=== PATIENT | male | born 1955 | race Caucasian/White ===

== ENCOUNTER 2017-02-08 08:00 | Outpatient (CLI) | payer BC ==
[2017-02-08 12:56] LABS: BASOPHILS # (AUTO) 0.1 10^3/uL (0.0-0.1); BASOPHILS % (AUTO) 1.1 %; EOSINOPHILS # (AUTO) 0.6 10^3/uL (0.0-0.7); EOSINOPHILS % (AUTO) 10.5 %; HCT - HEMATOCRIT 41.9 % (42.0-52.0); HGB - HEMOGLOBIN 14.3 g/dL (14.0-18.0); LYMPHOCYTES # (AUTO) 2.1 10^3/uL (1.5-3.5); LYMPHOCYTES % (AUTO) 36.4 %; MEAN CORPUSCULAR HEMOGLOBIN 29.1 pg (27.0-31.0); MEAN CORPUSCULAR VOLUME 85.7 fL (80.0-94.0); MEAN PLATELET VOLUME 8.3 fL (7.4-11.4); MONOCYTES # (AUTO) 0.5 10^3/uL (0.0-1.0); MONOCYTES % (AUTO) 8.5 %; NEUTROPHILS # (AUTO) 2.5 10^3/uL (1.5-6.6); NEUTROPHILS % (AUTO) 43.5 %; NUCLEATED RED BLOOD CELLS AUTO 0.1 /100WBC; RED CELL DISTRIBUTION WIDTH 15.3 % (12.0-15.0); UNCORRECTED WHITE BLOOD COUNT 5.7 x10^3/uL; WHITE BLOOD COUNT 5.7 x10^3/uL (4.8-10.8)
[2017-02-08 13:33] LABS: ALBUMIN/GLOBULIN RATIO 1.5 (1.0-2.2); BILIRUBIN,TOTAL 0.5 mg/dL (0.2-1.0); BUN - BLOOD UREA NITROGEN 23 mg/dL (6-20); CALCIUM 9.3 mg/dL (8.5-10.3); CARBON DIOXIDE - CO2 24 mmol/L (21-32); CHLORIDE 107 mmol/L (101-111); CHOL/HDL RATIO 3.1 (<5.0); CHOLESTEROL 187 mg/dL; CREATININE 0.8 mg/dL (0.6-1.2); GFR - MDRD 99 (>89); GLUCOSE 94 mg/dL (70-100); HDL CHOLESTEROL 60 mg/dL; LDL/HDL RATIO 1.8 (<3.6); POTASSIUM 3.7 mmol/L (3.5-5.0); SODIUM 138 mmol/L (135-145); TOTAL PROTEIN 6.8 g/dL (6.7-8.2); TRIGLYCERIDES 85 mg/dL; VLDL CHOLESTEROL 17 mg/dL
[2017-02-15 22:02] LABS: TEST RESULT REPORT
== END 2017-02-08 08:01 | disposition home or self-care (01) ==
LOC: LAB.WCP 08:00
PROVIDERS: ATTEND Physician Assistant Medical
DX: E78.5 Hyperlipidemia, unspecified (principal); Z12.5 Encounter for screening for malignant neoplasm of prostate; E29.1 Testicular hypofunction
CPT/HCPCS: 36415; 80053; 80061; 81599; 84153; 84402; 84403; 84443; 85025

== ENCOUNTER 2018-05-12 08:00 | Outpatient (CLI) | payer BC, OTHER ==
[2018-05-12 13:12] LABS: BASOPHILS % (AUTO) 0.8 %; EOSINOPHILS # (AUTO) 0.5 10^3/uL (0.0-0.7); EOSINOPHILS % (AUTO) 8.7 %; HGB - HEMOGLOBIN 11.4 g/dL (14.0-18.0); LYMPHOCYTES # (AUTO) 2.1 10^3/uL (1.5-3.5); LYMPHOCYTES % (AUTO) 34.5 %; MEAN CORPUSCULAR HEMOGLOBIN 20.2 pg (27.0-31.0); MEAN CORPUSCULAR HGB CONC 32.2 g/dL (32.0-36.0); MEAN CORPUSCULAR VOLUME 62.9 fL (80.0-94.0); MEAN PLATELET VOLUME 8.8 fL (7.4-11.4); MONOCYTES # (AUTO) 0.7 10^3/uL (0.0-1.0); MONOCYTES % (AUTO) 12.4 %; NEUTROPHILS # (AUTO) 2.6 10^3/uL (1.5-6.6); NEUTROPHILS % (AUTO) 43.6 %; PLT - PLATELET COUNT 342 10^3/uL (130-450); RED BLOOD COUNT 5.62 10^6/uL (4.70-6.10); RED CELL DISTRIBUTION WIDTH 19.4 % (12.0-15.0)
[2018-05-12 13:29] LABS: ALBUMIN/GLOBULIN RATIO 1.5 (1.0-2.2); ALKALINE PHOSPHATASE 43 IU/L (42-121); ALT ALANINE AMINOTRANSFERASE 22 IU/L (10-60); AST ASPARTATE AMINOTRANSFERASE 26 IU/L (10-42); BILIRUBIN,TOTAL 0.5 mg/dL (0.2-1.0); BUN - BLOOD UREA NITROGEN 19 mg/dL (6-20); CALCIUM 8.9 mg/dL (8.5-10.3); CARBON DIOXIDE - CO2 26 mmol/L (21-32); CHLORIDE 105 mmol/L (101-111); CHOL/HDL RATIO 3.4 (<5.0); CHOLESTEROL 165 mg/dL; GFR - MDRD 76 (>89); GLUCOSE 90 mg/dL (70-100); HDL CHOLESTEROL 49 mg/dL; LDL CHOLESTEROL,CALCULATED 102 mg/dL; LDL/HDL RATIO 2.1 (<3.6); SODIUM 136 mmol/L (135-145); TOTAL PROTEIN 6.6 g/dL (6.7-8.2); VLDL CHOLESTEROL 14 mg/dL
== END 2018-05-12 23:59 | disposition home or self-care (01) ==
LOC: LAB.WCP 08:00
PROVIDERS: ATTEND Physician Assistant Medical
DX: E78.5 Hyperlipidemia, unspecified (principal); Z12.5 Encounter for screening for malignant neoplasm of prostate
CPT/HCPCS: 36415; 80053; 80061; 83721; 84153; 85025

== ENCOUNTER 2018-05-20 11:12 | Outpatient (CLI) | payer OTHER ==
[2018-05-20 19:47] LABS: % IRON SATURATION 6 % (20-50); IRON 27 ug/dL (45-182); TOTAL IRON BINDING CAPACITY 447 ug/dL (250-450); TRANSFERRIN 319 mg/dL (180-329)
== END 2018-05-20 11:13 | disposition home or self-care (01) ==
LOC: LAB.WCP 11:12
PROVIDERS: ATTEND Family Medicine
DX: D50.9 Iron deficiency anemia, unspecified (principal)
CPT/HCPCS: 36415; 82728; 83540; 84466

== ENCOUNTER 2018-06-02 12:10 | Day surgery (SDC) | payer OTHER ==
[~2018-06-02 12:10] MED LIST: LIDO GARGLE 30 ML BOTTLE ONE
[2018-06-02] MEDS ORDERED: LACTATED RINGERS 1,000 ML IV ONE (12:45)
[2018-06-02] MEDS ORDERED: LIDO GARGLE 30 ML BOTTLE PO ONE (13:21)
[2018-06-02] MEDS ORDERED: fentaNYL 250 MCG/5 ML VIAL IVP ONE (13:29)
[2018-06-02] MEDS ORDERED: MIDAZOLAM 2 MG/2 ML VIAL IVP ONE (13:29)
[2018-06-02 14:26] VITALS: BP 126/70
== END 2018-06-02 12:11 | disposition home or self-care (01) ==
LOC: SDS 12:10
PROVIDERS: ATTEND Surgery
PROC: 0DJD8ZZ Inspection of Lower Intestinal Tract, Via Natural or Artificial Opening Endoscopic (ICD-10-PCS; 2018-06-02)
PROC: 0DB58ZX Excision of Esophagus, Via Natural or Artificial Opening Endoscopic, Diagnostic (ICD-10-PCS; principal; 2018-06-02 13:30)
PROC: 0DB78ZX Excision of Stomach, Pylorus, Via Natural or Artificial Opening Endoscopic, Diagnostic (ICD-10-PCS; 2018-06-02 13:30)
DX: D50.9 Iron deficiency anemia, unspecified (principal); K20.9 Esophagitis, unspecified; K29.70 Gastritis, unspecified, without bleeding; K57.30 Diverticulosis of large intestine without perforation or abscess without bleeding; K64.8 Other hemorrhoids; K64.4 Residual hemorrhoidal skin tags; F17.290 Nicotine dependence, other tobacco product, uncomplicated; Z87.19 Personal history of other diseases of the digestive system
CPT/HCPCS: 43239; 45378; 87081; A9270; J3010; J7120

== ENCOUNTER 2019-08-31 08:05 | Outpatient (CLI) | payer OTHER ==
[2019-08-31 13:53] LABS: BASOPHILS # (AUTO) 0.1 10^3/uL (0.0-0.1); BASOPHILS % (AUTO) 1.2 %; EOSINOPHILS # (AUTO) 0.5 10^3/uL (0.0-0.7); EOSINOPHILS % (AUTO) 7.5 %; HGB - HEMOGLOBIN 17.1 g/dL (14.0-18.0); LYMPHOCYTES # (AUTO) 2.1 10^3/uL (1.5-3.5); LYMPHOCYTES % (AUTO) 32.9 %; MEAN CORPUSCULAR HEMOGLOBIN 26.3 pg (27.0-31.0); MEAN CORPUSCULAR HGB CONC 31.7 g/dL (32.0-36.0); MEAN CORPUSCULAR VOLUME 82.9 fL (80.0-94.0); MEAN PLATELET VOLUME 9.7 fL (7.4-11.4); MONOCYTES # (AUTO) 0.7 10^3/uL (0.0-1.0); MONOCYTES % (AUTO) 10.5 %; NEUTROPHILS # (AUTO) 3.1 10^3/uL (1.5-6.6); NEUTROPHILS % (AUTO) 47.3 %; PLT - PLATELET COUNT 289 10^3/uL (130-450); RED CELL DISTRIBUTION WIDTH 16.8 % (12.0-15.0); WHITE BLOOD COUNT 6.5 x10^3/uL (4.8-10.8)
[2019-08-31 14:27] LABS: ALBUMIN 4.2 g/dL (3.2-5.5); ALBUMIN/GLOBULIN RATIO 1.5 (1.0-2.2); ALKALINE PHOSPHATASE 49 IU/L (42-121); ALT ALANINE AMINOTRANSFERASE 33 IU/L (10-60); AST ASPARTATE AMINOTRANSFERASE 31 IU/L (10-42); BILIRUBIN,TOTAL 0.8 mg/dL (0.2-1.0); BUN - BLOOD UREA NITROGEN 19 mg/dL (6-20); CALCIUM 9.2 mg/dL (8.5-10.3); CARBON DIOXIDE - CO2 28 mmol/L (21-32); CHLORIDE 105 mmol/L (101-111); CHOL/HDL RATIO 4.3 (<5.0); CHOLESTEROL 217 mg/dL; CREATININE 0.9 mg/dL (0.6-1.2); GLUCOSE 95 mg/dL (70-100); HDL CHOLESTEROL 51 mg/dL; LDL CHOLESTEROL,CALCULATED 141 mg/dL; LDL/HDL RATIO 2.8 (<3.6); SODIUM 138 mmol/L (135-145); VLDL CHOLESTEROL 25 mg/dL
== END 2019-08-31 23:59 | disposition home or self-care (01) ==
LOC: LAB.WCP 08:05
PROVIDERS: ATTEND Family Medicine
DX: D50.8 Other iron deficiency anemias (principal); E78.5 Hyperlipidemia, unspecified
CPT/HCPCS: 36415; 80053; 80061; 83721; 84443; 85025

== ENCOUNTER 2019-10-15 15:24 | Outpatient (CLI) | payer OTHER ==
--- NOTE | 2019-10-15 17:07 | XRAY Report ---
Reason: CERVICAL RADICULOPATHY Procedure Date: 10/15/2019 Accession Number: [id number] / [id number] Procedure: WCP - Cervical Spine 2 View CPT Code: Final Report FULL RESULT: PROCEDURE: Cervical Spine 2 View INDICATIONS: CERVICAL RADICULOPATHY TECHNIQUE: 2 view(s) of the cervical spine were acquired. COMPARISON: None. FINDINGS: Bones: No fractures or dislocations to the T1 level. The lateral masses of C1 appear intact on the odontoid view. No suspicious bony lesions. No acute compression fractures. Multilevel cervical spondylosis most severe at C6-7. Soft tissues: No prevertebral soft tissue swelling. IMPRESSION: Cervical spine without acute fracture or dislocation. Multilevel cervical spondylosis most severe at C6-7. Reviewed by: Ben Chambers MD on 10/15/2019 5:06 PM PDT Approved by: Ben Chambers MD on 10/15/2019 5:06 PM PDT Station ID: [id number]
== END 2019-10-15 23:59 | disposition home or self-care (01) ==
LOC: DI.WCP 15:24
PROVIDERS: ATTEND Family Medicine
DX: M47.812 Spondylosis without myelopathy or radiculopathy, cervical region (principal)
CPT/HCPCS: 72040

== ENCOUNTER 2020-04-25 08:00 | Outpatient (CLI) | payer OTHER | END 2020-04-25 23:59 | disposition home or self-care (01) | LOC: LAB.WCP 08:00 | PROVIDERS: ATTEND Physician Assistant Medical | DX: E29.1 Testicular hypofunction (principal) | CPT/HCPCS: 36415; 81599; 84402; 84403 ==

== ENCOUNTER → 2020-10-31 | Outpatient (CLI) | payer OTHER ==
[2020-10-31 12:45] LABS: BASOPHILS # (AUTO) 0.1 10^3/uL (0.0-0.1); BASOPHILS % (AUTO) 1.3 %; EOSINOPHILS # (AUTO) 0.5 10^3/uL (0.0-0.7); EOSINOPHILS % (AUTO) 7.3 %; LYMPHOCYTES # (AUTO) 2.1 10^3/uL (1.5-3.5); LYMPHOCYTES % (AUTO) 31.3 %; MEAN CORPUSCULAR HEMOGLOBIN 23.5 pg (27.0-31.0); MEAN CORPUSCULAR HGB CONC 30.8 g/dL (32.0-36.0); MEAN CORPUSCULAR VOLUME 76.5 fL (80.0-94.0); MEAN PLATELET VOLUME 9.6 fL (7.4-11.4); MONOCYTES # (AUTO) 0.8 10^3/uL (0.0-1.0); MONOCYTES % (AUTO) 11.5 %; NEUTROPHILS # (AUTO) 3.3 10^3/uL (1.5-6.6); PLT - PLATELET COUNT 294 10^3/uL (130-450); RED CELL DISTRIBUTION WIDTH 19.7 % (12.0-15.0); WHITE BLOOD COUNT 6.8 x10^3/uL (4.8-10.8)
[2020-10-31 13:13] LABS: ALBUMIN/GLOBULIN RATIO 1.4 (1.0-2.2); ALKALINE PHOSPHATASE 43 IU/L (42-121); ALT ALANINE AMINOTRANSFERASE 28 IU/L (10-60); AST ASPARTATE AMINOTRANSFERASE 30 IU/L (10-42); BILIRUBIN,TOTAL 0.6 mg/dL (0.2-1.0); BUN - BLOOD UREA NITROGEN 21 mg/dL (6-20); CALCIUM 9.2 mg/dL (8.5-10.3); CARBON DIOXIDE - CO2 27 mmol/L (21-32); CHLORIDE 101 mmol/L (101-111); CHOL/HDL RATIO 4.3 (<5.0); CHOLESTEROL 220 mg/dL; CREATININE 1.1 mg/dL (0.6-1.2); GFR - MDRD 67 (>89); GLUCOSE 90 mg/dL (70-100); HDL CHOLESTEROL 51 mg/dL; LDL CHOLESTEROL,CALCULATED 147 mg/dL; LDL/HDL RATIO 2.9 (<3.6); POTASSIUM 3.9 mmol/L (3.5-5.0); SODIUM 137 mmol/L (135-145); TOTAL PROTEIN 6.9 g/dL (6.7-8.2); TRIGLYCERIDES 112 mg/dL; VLDL CHOLESTEROL 22 mg/dL
== END ==
LOC: LAB.WCP 07:00
PROVIDERS: ATTEND Physician Assistant Medical
DX: E78.5 Hyperlipidemia, unspecified (principal); Z12.5 Encounter for screening for malignant neoplasm of prostate; E29.1 Testicular hypofunction; D50.9 Iron deficiency anemia, unspecified
CPT/HCPCS: 36415; 80053; 80061; 81599; 83721; 84153; 84402; 84403; 85025

== ENCOUNTER 2020-11-09 15:57 | Outpatient (CLI) | payer OTHER ==
--- NOTE | 2020-11-10 09:45 | XRAY Report ---
PROCEDURE: Foot 3 View LT INDICATIONS: L FOOT PX TECHNIQUE: 3 views of the foot were acquired. COMPARISON: None. FINDINGS: Bones: No acute fractures or dislocations. No suspicious bony lesions. Soft tissues: Soft tissue edema is seen surrounding the ankle. IMPRESSION: No acute osseous abnormality. If there is clinical concern or persistent symptoms, additional imaging such as repeat radiographs or advanced imaging (e.g. CT, MRI) may be helpful for further evaluation. Reviewed by: Nnamdi Hastings MD on 11/10/2020 9:44 AM PDT Approved by: Nnamdi Hastings MD on 11/10/2020 9:44 AM PDT Station ID: [id number]
--- NOTE | 2020-11-10 09:46 | XRAY Report ---
PROCEDURE: Ankle 3 View LT INDICATIONS: L ANKLE PX TECHNIQUE: 3 views of the ankle were acquired. COMPARISON: None. FINDINGS: Bones: Questionable cortical irregularity at the anterior process of the calcaneus. The remaining oss eous structures appear to be intact. Ankle mortise is normally aligned. No suspicious bony lesions. Soft tissues: Soft tissue edema seen surrounding the ankle. IMPRESSION: Questionable cortical irregularity of the anterior process of the calcaneus is partially visualized d ue to overlapping osseous structures, but could represent a small minimally displaced fracture. Reviewed by: Nnamdi Hastings MD on 11/10/2020 9:45 AM PDT Approved by: Nnamdi Hastings MD on 11/10/2020 9:45 AM PDT Station ID: [id number]
== END 2020-11-09 15:58 | disposition home or self-care (01) ==
LOC: DI.N 15:57
PROVIDERS: ATTEND Physician Assistant Medical
DX: M25.572 Pain in left ankle and joints of left foot (principal); M79.672 Pain in left foot